=== PATIENT | female | born 1960 | race Caucasian/White ===

== ENCOUNTER 2017-10-10 12:31 | Day surgery (SDC) | payer OTHER ==
[2017-10-10] MEDS ORDERED: FENTAnyl 50 MCG/ML VIAL (15:13)
[2017-10-10] MEDS ORDERED: MIDAZOLAM 1 MG/ML 2 ML INJ ×2 (15:13)
== END 2017-10-10 15:33 | disposition home or self-care (01) ==
LOC: GIL 12:31
DX: Z12.11 Encounter for screening for malignant neoplasm of colon (principal); K64.8 Other hemorrhoids
CPT/HCPCS: 45378